=== PATIENT | female | born 1945 | race Hispanic/Latino ===

== ENCOUNTER 2017-03-06 22:12 | Emergency (ER) | payer MEDICARE, BC ==
[2017-03-06 22:12] VITALS: BMI 27.8
[2017-03-06 22:44] VITALS: TEMP 97.8
--- NOTE | 2017-03-06 23:04 | ED PDOC ---
Arrival/HPI - General Chief Complaint: Upper Extremity Problem/Injury Time Seen by Provider: 03/06/17 23:02 Historian: Patient - History of Present Illness Narrative History of Present Illness (Text): 03/06/17 23:03 This 71 yo female presents to this ED c/o left forearm swelling x 6 hours. Patient stated she noticed a redness on the same area x 2 hours. Patient stated she saw her orthopedist doctor around 4 pm, and he injected on each forearm cortisone to treat carpal tunnel, over the palmar aspect. Denies other complains. Wrist, hands and fingers have FROM. Time/Duration: Other (see HPI) Context: Other (doctor office) Past Medical History - Provider Review Nursing Documentation Reviewed: Yes - Infectious Disease Hx of Infectious Diseases: None - Cardiac Hx Hypertension: Yes Hx Pacemaker: No - Pulmonary Hx Respiratory Disorders: No - Neurological Hx Paralysis: No Hx Parkinson's Disease: Yes - HEENT Hx HEENT Disorder: No - Renal Hx Renal Disorder: No - Endocrine/Metabolic Hx Endocrine Disorders: No - Hematological/Oncological Hx Blood Transfusions: Yes - Integumentary Hx Dermatological Disorder: No - Musculoskeletal/Rheumatological Hx Musculoskeletal Disorders: Yes Hx Arthritis: Yes Hx Osteoarthritis: Yes - Gastrointestinal Hx Gastrointestinal Disorders: No Hx Gall Bladder Disease: Yes (stones) - Genitourinary/Gynecological Hx Genitourinary Disorders: No - Psychiatric Hx Emotional Abuse: No Hx Physical Abuse: No Hx Substance Use: No - Surgical History Hx Hysterectomy: Yes - Anesthesia Hx Anesthesia: Yes Hx Anesthesia Reactions: Yes (NAUSEA) Hx Malignant Hyperthermia: No - Suicidal Assessment Feels Threatened In Home Enviroment: No Family/Social History - Physician Review Nursing Documentation Reviewed: Yes Family/Social History: No Known Family HX Smoking Status: Never Smoked Hx Alcohol Use: No Hx Substance Use: No Allergies/Home Meds Allergies/Adverse Reactions: Allergies nitrofurantoin macrocrystalline [From Macrodantin] Allergy (Severe, Verified 07/15 22:44) RASH house dust Allergy (Verified 03/06/17 22:44) CONGESTION AEROSOL SPRAYS Allergy (Uncoded 03/06/17 22:44) CONGESTION Home Medications: Home Meds Medication Instructions Recorded Confirmed Aspirin [Aspir 81] 81 mg PO DAILY 08/09/13 01/25/16 Carbidopa/Levodopa 25/100 mg 1.5 tab PO QID 08/09/13 01/25/16 [Sinemet] Esomeprazole Magnesium [Nexium] 40 mg PO DAILY PRN 05/23/14 01/25/16 Olopatadine HCl [Patanase] 1 spr RANDY DAILY 05/23/14 01/25/16 Alprazolam 0.5 mg PO DAILY 01/21/16 01/25/16 Bifidobacterium Infantis [Align] 4 mg PO DAILY 01/21/16 01/25/16 Cholecalciferol (Vitamin D3) 2,000 unit PO DAILY 01/21/16 01/25/16 [Vitamin D] Ciclopirox [Penlac Nail Lacquer 6.6 ml TP DAILY 01/21/16 01/25/16 6.6 ml] PARoxetine [Paxil] 20 mg PO DAILY 01/21/16 01/25/16 Propranolol [Inderal LA] 80 mg PO BID 01/21/16 01/25/16 Pyridoxine [Vitamin B6] 100 mg PO DAILY 01/21/16 01/25/16 QUEtiapine [SEROquel] 50 mg PO HS 01/21/16 01/25/16 Rotigotine [Neupro] 1 mg TD DAILY 01/21/16 01/25/16 Simvastatin 10 mg PO DAILY 01/21/16 01/25/16 Ubidecarenone [Coq-10] 200 mg PO TID 01/21/16 01/25/16 Ursodiol 300 mg PO BID 01/21/16 01/25/16 Review of Systems - Review of Systems Constitutional: Normal. absent: Fatigue, Weight Change, Fevers Eyes: Normal ENT: Normal Respiratory: Normal Cardiovascular: Normal Gastrointestinal: Normal Genitourinary Female: Normal Musculoskeletal: Normal Skin: Other (swelling and redness) Neurological: Normal Endocrine: Normal Hemo/Lymphatic: Normal Psychiatric: Normal Physical Exam Vital Signs Temp Pulse Resp BP Pulse Ox 03/07/17 00:11 16 98 03/06/17 23:59 90 16 146/100 H 96 03/06/17 22:31 97.8 F 95 H 20 176/118 H 99 Temperature: Afebrile Blood Pressure: Normal Pulse: Regular Respiratory Rate: Normal Appearance: Positive for: Well-Appearing, Non-Toxic, Comfortable Pain Distress: None Mental Status: Positive for: Alert and Oriented X 3 - Systems Exam Head: Present: Atraumatic, Normocephalic Pupils: Present: PERRL Extroacular Muscles: Present: EOMI Conjunctiva: Present: Normal Mouth: Present: Moist Mucous Membranes Neck: Present: Normal Range of Motion Respiratory/Chest: Present: Clear to Auscultation, Good Air Exchange. No: Accessory Muscle Use Cardiovascular: Present: Regular Rate and Rhythm, Normal S1, S2. No: Murmurs Upper Extremity: Present: Normal ROM, NORMAL PULSES, Tenderness ((+) mild tenderness at distal dorsal left forearm with an irregular linear rash, blanches on palpation. No warmth on palpation. Palmar aspect of left forearm is non tender, no swelling or erythema.). No: Cyanosis, Edema Lower Extremity: Present: Normal Inspection Neurological: Present: GCS=15, CN II-XII Intact, Speech Normal Skin: Present: Warm, Dry, Normal Color. No: Rashes Psychiatric: Present: Alert, Oriented x 3 Medical Decision Making ED Course and Treatment: 03/06/17 23:33 Re-evaluation. Patient feels better. Discussed results and plan with patient who expresses understanding. All questions answered and there is agreement with the plan to discharge home with instructions. Patient stable for discharge. Return if symptoms persist or worsen Patient came to this ED with spouse. Patient was c/o left forearm swelling and redness. Patient stated redness has improved during course of ED visit. I ordered Augmentin for prophylaxis of rash/cellulitis. Patient was recommended to see PMD in 1-2 days, to take medication as instructed, and to return to emergency if redness worsen. Re-evaluation Time: 23:33 Reassessment Condition: Re-examined, Improved - Medication Orders Current Medication Orders: Discontinued Medications Amoxicillin/Clavulanate Potassium (Augmentin 875 Mg-125 Mg Tab) 1 tab PO STAT STA PRN Reason: Protocol Stop: 03/06/17 23:11 Last Admin: 03/06/17 23:23 Dose: 1 tab Tramadol/Acetaminophen (Ultracet 37.5/325 Mg) 1 tab PO STAT STA Stop: 03/06/17 23:12 Last Admin: 03/06/17 23:22 Dose: Not Given Non-Admin Reason: Patient Refused Disposition/Present on Arrival - Present on Arrival Any Indicators Present on Arrival: No History of DVT/PE: No History of Uncontrolled Diabetes: No Urinary Catheter: No History of Decub. Ulcer: No History Surgical Site Infection Following: None - Disposition Have Diagnosis and Disposition been Completed?: Yes Diagnosis: Cellulitis Disposition: HOME/ ROUTINE Disposition Time: 23:51 Patient Plan: Discharge Condition: GOOD Discharge Instructions (ExitCare): Cellulitis (ED) Additional Instructions: Call private doctor for follow up visit in 1- 2 days. Take medication as instructed. Return to emergency if redness on forearm worsen. Or if you develop fever. Have your blood pressure recheck in 2-3 days Prescriptions: Amoxicillin/Clavulanate [Augmentin 875 MG-125 MG] 1 tab PO BID #14 tab traMADol [Ultram] 50 mg PO Q6H PRN #12 tab PRN Reason: Pain, Severe (8-10) Referrals: Esteban Castaneda DO [Family Provider] - Follow up with primary Forms: [employer] (Slovak)
[2017-03-06] MEDS ORDERED: Amoxicillin-Clav 875-125 mg Tab PO STA (23:10)
[2017-03-06] MEDS ORDERED: TraMADol/Apap 37.5/325 mg Tab PO STA (23:11)
[2017-03-07] VITALS: BP 146/100; PULSE 90; RESP 16
[2017-03-07 00:12] VITALS: O2SAT 98
== END 2017-03-07 00:12 | disposition home or self-care (01) ==
LOC: ED 22:12
DX: L03.114 Cellulitis of left upper limb (principal)

== ENCOUNTER 2018-04-23 09:45 | Inpatient (IN) | payer MEDICARE, BC ==
--- NOTE | 2018-04-23 09:55 | ED PDOC ---
Arrival/HPI - General Chief Complaint: Lower Extremity Problem/Injury Time Seen by Provider: 04/23/18 09:54 Historian: Patient, Spouse - History of Present Illness Narrative History of Present Illness (Text): 04/23/18 10:30 73 year old female, whose PMH includes hypertension, and parkinson's disease, who presents to the emergency department complaining of severe bilateral leg cramps/pain that has become worse since 3 weeks. Patient reports pain gets worse whenever she moves, changes position, or walks. She suffers from Parkinson 's disease and usually uses a walker for assistance in ambulating. Patient has been evaluated/treated by multiple physicians (PMD, neurologist, director child , and orthopedic), who initially recommended to change cholesterol medication due to concern of side effect, however the symptoms have continued. Patient notes she's had right knee injections without improvement to cramps and was directed by Dr. Castaneda to come to the emergency department for evaluation 3 days ago. Today the pain was very severe that she decided to come for evaluation. Patient denies fall or trauma, fever, chest pain, shortness of breath, nausea, vomiting, diarrhea, abdominal pain, or other complaints. Pt denied swelling/edema, numbness/tingling, no gross/new weakness noted to her limbs; Additionally, patient tried over the counter medication Celebrex, with no significant change in her symptoms. pt is here for further eval pt is without other medical complaints PMD: Dr. Castaneda neurologists: here and in [facility] Time/Duration: > week Symptom Onset: Gradual Symptom Course: Worsening Quality: Cramping Severity Level: Severe Activities at Onset: Rest Context: Home Past Medical History - Provider Review Nursing Documentation Reviewed: Yes - Travel History Have you recently traveled outside [place] w/in the past 3 mons?: No - Past History Past History: Non-Contributing - Infectious Disease Hx of Infectious Diseases: None - Reproductive Menopause: Yes Currently : No - Cardiac Hx Hypertension: Yes Hx Pacemaker: No - Pulmonary Hx Respiratory Disorders: No - Neurological Hx Paralysis: No Hx Parkinson's Disease: Yes - HEENT Hx HEENT Disorder: No - Renal Hx Renal Disorder: No - Endocrine/Metabolic Hx Endocrine Disorders: No - Hematological/Oncological Hx Blood Transfusions: Yes - Integumentary Hx Dermatological Disorder: No - Musculoskeletal/Rheumatological Hx Musculoskeletal Disorders: Yes Hx Arthritis: Yes Hx Osteoarthritis: Yes - Gastrointestinal Hx Gastrointestinal Disorders: No Hx Gall Bladder Disease: Yes (stones) - Genitourinary/Gynecological Hx Genitourinary Disorders: No - Psychiatric Hx Emotional Abuse: No Hx Physical Abuse: No Hx Substance Use: No - Surgical History Hx Hysterectomy: Yes - Anesthesia Hx Anesthesia: Yes Hx Anesthesia Reactions: Yes (NAUSEA) Hx Malignant Hyperthermia: No - Suicidal Assessment Feels Threatened In Home Enviroment: No Family/Social History - Physician Review Nursing Documentation Reviewed: Yes Family/Social History: Unknown Family HX Smoking Status: Never Smoked Hx Alcohol Use: No Hx Substance Use: No Hx Substance Use Treatment: No Allergies/Home Meds Allergies/Adverse Reactions: Allergies nitrofurantoin macrocrystalline [From Macrodantin] Allergy (Severe, Verified 07/15 22:44) RASH house dust Allergy (Verified 03/06/17 22:44) CONGESTION AEROSOL SPRAYS Allergy (Uncoded 03/06/17 22:44) CONGESTION Home Medications: Home Meds Medication Instructions Recorded Confirmed Aspirin [Aspir 81] 81 mg PO DAILY 08/09/13 04/23/18 Carbidopa/Levodopa 25/100 mg 1.5 tab PO QID 08/09/13 04/23/18 [Sinemet] Esomeprazole Magnesium [Nexium] 40 mg PO DAILY PRN 05/23/14 04/23/18 Olopatadine HCl [Patanase] 1 spr RANDY DAILY 05/23/14 04/23/18 Alprazolam 0.5 mg PO DAILY 01/21/16 04/23/18 Bifidobacterium Infantis [Align] 4 mg PO DAILY 01/21/16 04/23/18 Cholecalciferol (Vitamin D3) 2,000 unit PO DAILY 01/21/16 04/23/18 [Vitamin D] Ciclopirox [Penlac Nail Lacquer 6.6 ml TP DAILY 01/21/16 04/23/18 6.6 ml] PARoxetine [Paxil] 20 mg PO DAILY 01/21/16 04/23/18 Propranolol [Inderal LA] 80 mg PO BID 01/21/16 04/23/18 Pyridoxine [Vitamin B6] 100 mg PO DAILY 01/21/16 04/23/18 QUEtiapine [SEROquel] 50 mg PO HS 01/21/16 04/23/18 Rotigotine [Neupro] 1 mg TD DAILY 01/21/16 04/23/18 Simvastatin 10 mg PO DAILY 01/21/16 04/23/18 Ubidecarenone [Coq-10] 200 mg PO TID 01/21/16 04/23/18 Ursodiol 300 mg PO BID 01/21/16 04/23/18 Review of Systems - Review of Systems Constitutional: absent: Fevers Eyes: Normal ENT: absent: Sore Throat Respiratory: absent: SOB Cardiovascular: absent: Chest Pain, Palpitations Gastrointestinal: absent: Abdominal Pain, Vomiting Genitourinary Female: absent: Dysuria Musculoskeletal: Other (bilateral leg cramping ). absent: Back Pain Skin: absent: Rash Neurological: absent: Headache Endocrine: absent: Diaphoresis Hemo/Lymphatic: Normal Psychiatric: Normal Physical Exam - Physical Exam Narrative Physical Exam (Text): 04/23/18 General: alert/awake, GCS = 15, oriented x 3, resting in bed, uncomfortable, cooperative, interactive; NAD Head: NC/AT EYE: PERRLA, EOMI, sclera anicteric, no nystagmus, no photophobia; visual field intact b/l Facial: WNL Oral: uvula/tongue are midline, no exudate/lesions, no drooling/stridor, no dysphonia; intact dentitions; moist oral mucosa NECK: intact ROM, no midline tenderness, no nuchal rigidity, no meningeal signs ; no step off Chest: CTA b/l, no w/r/r; no tachypenia, no accessory muscle use noted Chest Wall: no crepitus, no lesions, no gross deformities, no focal tenderness Cardiac: +S1, +S2, no m/r/r, no tachycardia Abdominal: +BS, soft/nd/nt, well nourished patient; no masses/rebound/guarding/ rigidity; no escobedo's sign, no mcburney's point tenderness Extremities: intact ROM, strength 5-/5 grossly intact in all limbs, neurovasc intact b/l; reflex +2/2; + resting tremors noted BACK: no step off, no midline tenderness, NO crepitus, no gross deformities noted; Intact ROM SKIN: cap refill < 1 sec, no ulcerations, no petechiae, no rashes; no gross pallor noted NEURO: CNII-XII WNL, no facial asymmetries, no slurr speech, oriented x 3 NIH stroke scale ~ 0 Psych: normal insight, normal affect; follows command with ease Vital Signs Reviewed: Yes Vital Signs Temp Pulse Resp BP Pulse Ox 04/23/18 15:43 78 18 166/82 H 95 04/23/18 09:46 98.2 F 85 18 156/74 H 97 Temperature: Afebrile Blood Pressure: Hypertensive Pulse: Regular Respiratory Rate: Normal Appearance: Positive for: Well-Appearing, Non-Toxic, Uncomfortable. No: Ill- Appearing, Unkept Pain Distress: None Mental Status: Positive for: Alert and Oriented X 3 - Systems Exam Head: Present: Atraumatic, Normocephalic Medical Decision Making ED Course and Treatment: 04/23/18 Impression: 73 year old female with worsening bilateral leg cramps since 3 weeks. I have considered all Differential Diagnosis regarding pt's chief medical complaints/clinical findings included but are not limited to: atypical leg cramps, unlikely DVT/will r/o; r/o rhabdo Plan: -- EKG -- Labs -- Toradol, Valium, and Sodium Chloride -- Urinalysis -- Ultrasound Lower extremity -- Reassess and disposition Progress Notes: 04/23/18 14:03 After re-evaluation, patient is still with severe leg cramps and uncomfortable, but is NOT able to ambulate. After extensive discussion with spouse and patient , they express concern going home. I will recommend patient for admission. 04/23/18 14:[address] Castaneda I spoke with dr Castaneda, made aware, agrees with admission, would like patient to be notified that she will be admitted for at least 3 nights pt is made aware of her medical results agrees with admission Re-evaluation Time: 14:00 Reassessment Condition: Unchanged - Lab Interpretations Lab Results: 04/23/18 11:15 04/23/18 11:15 Lab Results 04/23/18 13:23: Urine Color Yellow, Urine Appearance Clear, Urine pH 6.0, Ur Specific [place] 1.020, Urine Protein Negative, Urine Glucose (UA) Negative, Urine Ketones Negative, Urine Blood Trace-intact H, Urine Nitrate Negative, Urine Bilirubin Negative, Urine Urobilinogen 0.2, Ur Leukocyte Esterase Negative , Urine RBC 1 - 3, Urine WBC 0 - 2, Ur Epithelial Cells 3 - 4, Urine Bacteria Few 04/23/18 11:28: Total Creatine Kinase 64 04/23/18 11:15: Sodium 143, Potassium 4.7, Chloride 107, Carbon Dioxide 25, Anion Gap 16, BUN 27 H, Creatinine 0.6 L, Est GFR ( Amer) > 60, Est GFR ( Non-Af Amer) > 60, Random Glucose 110, Calcium 9.3, Total Bilirubin 0.8, AST 26 , ALT 16, Alkaline Phosphatase 78, Total Protein 6.8, Albumin 4.2, Globulin 2.6 , Albumin/Globulin Ratio 1.6, Lipase 56 04/23/18 11:15: WBC 7.1 D, RBC 4.12, Hgb 12.2, Hct 36.4, MCV 88.3, MCH 29.6, MCHC 33.5, RDW 13.3, Plt Count 205, MPV 10.4, Gran % 70.2 H, Lymph % (Auto) 22.4 , Titus % (Auto) 5.3, Eos % (Auto) 1.8, Baso % (Auto) 0.3, Gran # 4.99, Lymph # ( Auto) 1.6, Titus # (Auto) 0.4, Eos # (Auto) 0.1, Baso # (Auto) 0.02 I have reviewed the lab results: Yes Interpretation: All labs normal - RAD Interpretation Narrative RAD Interpretations (Text): 04/23/18 14:00 prelim results u/s b/l - NO DVT b/l Radiology Orders: 04/23/18 10:27 DUPLEX LOWER EXTRM VEIN BILAT [US] Stat Bean Roaster: Radiologist - EKG Interpretation EKG Interpretation (Text): 04/23/18 14:25 NSR at 70 bpm, normal axis, no ectopy, qs in inferior leads, no st-t changes, ABNL EKG; unchanged compare with old ekg 04/2014 Interpreted by ED Physician: Yes Type: 12 lead EKG Comparison: Similar to previous EKG - Medication Orders Current Medication Orders: Discontinued Medications Carbidopa/Levodopa (Sinemet) 1.5 tab PO ONCE ONE Stop: 04/23/18 15:02 Last Admin: 04/23/18 15:40 Dose: Diazepam (Valium) 5 mg PO ONCE ONE PRN Reason: Protocol Stop: 04/23/18 10:24 Last Admin: 04/23/18 11:06 Dose: 5 mg Sodium Chloride (Sodium Chloride 0.9%) 500 mls @ 999 mls/hr IV .Q31M STA Stop: 04/23/18 10:53 Last Admin: 04/23/18 11:05 Dose: 999 mls/hr eMAR Start Stop Document 04/23/18 11:05 EQ (Rec: 04/23/18 11:06 [id number]) Intravenous Solution Start Date 04/23/18 Start Time 11:05 Ketorolac Tromethamine (Toradol) 30 mg IVP STAT STA Stop: 04/23/18 10:25 Last Admin: 04/23/18 11:06 Dose: 30 mg MAR Pain Assessment Document 04/23/18 11:06 EQ (Rec: 04/23/18 11:06 [id number]) Pain Reassessment Is this a pain reassessment? No Sleep Is patient sleeping during reassessment? No Presence of Pain Presence of Pain Yes IVP Administration Document 04/23/18 11:06 EQ (Rec: 04/23/18 11:06 [id number]) Charges for Administration # of IVP Administrations 1 Oxycodone/Acetaminophen (Percocet 5/325 Mg Tab) 1 tab PO STAT STA Stop: 04/23/18 14:04 Last Admin: 04/23/18 15:39 Dose: 1 tab MAR Pain Assessment Document 04/23/18 15:39 EQ (Rec: 04/23/18 15:40 [id number]) Pain Reassessment Is this a pain reassessment? No Sleep Is patient sleeping during reassessment? No Presence of Pain Presence of Pain Yes - Scribe Statement The provider has reviewed the documentation as recorded by the Aroldo Estrada Provider Scribe Attestation: All medical record entries made by the Scribbhavna were at my direction and personally dictated by me. I have reviewed the chart and agree that the record accurately reflects my personal performance of the history, physical exam, medical decision making, and the department course for this patient. I have also personally directed, reviewed, and agree with the discharge instructions and disposition. Disposition/Present on Arrival - Present on Arrival Any Indicators Present on Arrival: No History of DVT/PE: No History of Uncontrolled Diabetes: No Urinary Catheter: No History of Decub. Ulcer: No History Surgical Site Infection Following: None - Disposition Have Diagnosis and Disposition been Completed?: Yes Diagnosis: Ambulatory dysfunction, Parkinsonian syndrome, Weakness, Leg pain Diagnosis: (Ruled Out): UTI (urinary tract infection) Disposition: HOSPITALIZED Disposition Time: 14:27 Patient Plan: Admission Patient Problems: Current Active Problems Problem Status Onset Ambulatory dysfunction Acute Leg pain Acute Parkinsonian syndrome Acute Weakness Acute Condition: STABLE
[2018-04-23] MEDS ORDERED: Sodium Chloride 0.9% 500 ML IV STA (10:23)
[2018-04-23 11:36] LABS: BASO # 0.02 K/mm3 (0.0-2.0); BASO % 0.3 % (0.0-3.0); EOS # 0.1 (0.0-0.7); EOS % 1.8 % (1.5-5.0); GRAN # 4.99 (1.4-6.5); GRAN % 70.2 % (50.0-68.0); HEMOGLOBIN 12.2 g/dL (12.0-16.0); LYMPH # 1.6 (1.2-3.4); LYMPH % 22.4 % (22.0-35.0); MEAN CELL VOLUME 88.3 fl (80.0-105.0); MEAN CORPUSCULAR HEMOGLOBIN 29.6 pg (25.0-35.0); MEAN CORPUSCULAR HGB CONC 33.5 g/dl (31.0-37.0); MEAN PLATELET VOLUME 10.4 fl (7.0-11.0); MONO # 0.4 (0.1-0.6); MONO % 5.3 % (1.0-6.0); RBC 4.12 10^6/uL (3.5-6.1); RED CELL DISTRIBUTION WIDTH 13.3 % (11.5-14.5); WHITE BLOOD COUNT 7.1 10^3/ul (4.5-11.0)
[2018-04-23 11:45] LABS: ALB/GLOB RATIO 1.6 (1.1-1.8); ALBUMIN 4.2 g/dL (3.0-4.8); ALT/SGPT 16 U/L (7-56); AST/SGOT 26 U/L (14-36); BLOOD UREA NITROGEN 27 mg/dL (7-21); CALCIUM 9.3 mg/dL (8.4-10.5); GFR AFRICAN-AMERICAN > 60; GFR NON-AFRICAN AMERICAN > 60; LIPASE 56 U/L (23-300)
[2018-04-23] MEDS ORDERED: Oxycodone/Acetaminophen 5/325 mg Tab PO STA (14:03)
--- NOTE | 2018-04-23 14:53 | US ---
HISTORY: Leg pain and swelling. Evaluate for DVT PHYSICIAN(S): Parminder Romero MD. TECHNIQUE: Duplex sonography and color-flow Doppler with graded compression were used to evaluate the deep venous systems of both lower extremities. FINDINGS: The visualized deep venous systems of both lower extremities are sonographically normal and compressible. Normal wave forms and augmentation are seen. There is no sonographic evidence for deep venous thrombosis in the visualized segments of both lower extremities. IMPRESSION: No sonographic evidence for deep venous thrombosis in the visualized segments of both lower extremities.
[2018-04-23 14:56] LABS: URINE BILIRUBIN NEGATIVE (NEGATIVE); URINE BLOOD TRACE-INTACT (NEGATIVE); URINE GLUCOSE (UA) NEGATIVE (NEGATIVE); URINE LEUKOCYTE ESTERASE NEGATIVE Leu/uL (NEGATIVE); URINE PROTEIN NEGATIVE mg/dL (<30 mg/dL); URINE UROBILINOGEN 0.2 E.U./dL (<1 E.U./dL)
[2018-04-23 14:58] LABS: URINE APPEARANCE CLEAR (CLEAR); URINE COLOR YELLOW (YELLOW)
[2018-04-23 15:04] LABS: URINE BACTERIA FEW (NEG); URINE WBC 0 - 2 /hpf (0-6)
[2018-04-23] MEDS ORDERED: Pantoprazole 40 mg EC Tab PO PRN (19:56)
[2018-04-23] MEDS: Sodium Chloride 0.45% 1,000 ML IV SCH (20:40)
[2018-04-23 22:14] VITALS: BMI 28.3
[2018-04-23] MEDS ORDERED: Pneumococcal 23-Valent Vaccine IM ONE (22:15)
--- NOTE | 2018-04-23 22:50 | CARD ---
APPROVED REPORT EKG Measurement Heart [id number] <Conclusion> Normal sinus rhythm Inferior infarct, age undetermined Cannot rule out Anterior infarct, age undetermined Abnormal ECG
[2018-04-24 07:46] LABS: HEMOGLOBIN 13.2 g/dL (12.0-16.0); MEAN CELL VOLUME 88.4 fl (80.0-105.0); MEAN CORPUSCULAR HEMOGLOBIN 29.5 pg (25.0-35.0); MEAN CORPUSCULAR HGB CONC 33.4 g/dl (31.0-37.0); MEAN PLATELET VOLUME 10.2 fl (7.0-11.0); RBC 4.47 10^6/uL (3.5-6.1); RED CELL DISTRIBUTION WIDTH 13.2 % (11.5-14.5); WHITE BLOOD COUNT 8.2 10^3/ul (4.5-11.0)
[2018-04-24 08:06] LABS: ALB/GLOB RATIO 1.4 (1.1-1.8); ALBUMIN 4.1 g/dL (3.0-4.8); ALT/SGPT 17 U/L (7-56); AST/SGOT 29 U/L (14-36); BLOOD UREA NITROGEN 20 mg/dL (7-21); CALCIUM 9.4 mg/dL (8.4-10.5); GFR AFRICAN-AMERICAN > 60; GFR NON-AFRICAN AMERICAN > 60
--- NOTE | 2018-04-24 08:07 | HP ---
HISTORY OF PRESENT ILLNESS: I know Josee very well for many years, seen here in the office. She presents to the Emergency Department with severe bilateral leg cramps, she has been dealing with this for about three weeks, I gave her some magnesium in the office and she does have Parkinson's disease, we tried to do some exercise on the outpatient. She does walk with a walker, but it has gotten steadily worse, so I sent her to the emergency room. She has had her knees injected in the past and now she does worsening of ambulation. I believe she needs to have subacute rehab so we are going to put her in the hospital for an acute hospital stay to get her acute rehab, because she is very difficult for her to walk or move her legs at all. PAST MEDICAL HISTORY: Hypertension, Parkinson's disease, leg cramps, she had blood transfusions in the past, she has arthritis, she has osteoarthritis, she has gallstones, hysterectomy, she was nauseous in the past from anesthesia. FAMILY HISTORY: She has unknown family history. SOCIAL HISTORY: She never smoked. No alcohol. No drugs. ALLERGIES: SHE HAS ALLERGY TO NITROFURANTOIN, HOUSE DUST AND AEROSOL SPRAYS. MEDICATIONS: She takes aspirin, Sinemet, Nexium, Patanase, Xanax for anxiety vitamin D3, Penlac, Paxil, Inderal, vitamin D6, Seroquel, Neupro, simvastatin, CoQ10 and Ursodiol. REVIEW OF SYSTEMS: No acute fevers or vision or hearing changes, no sore throat, no shortness of breath or cough, no chest pain or palpitations. No abdominal pain, nausea, vomiting, constipation or diarrhea. No problems urinating. She has bilateral leg cramping. No back pain. For the most part her skin is intact, that she knows of no rashes or ulcers. No headaches. No sweating. She is a little nervous, that is her baseline. PHYSICAL EXAMINATION VITAL SIGNS She has 98.2 temperature, 85 pulse, 18 respiratory rate, 166/74 blood pressure, and 97%O2 sat on room air. HEENT: Head: Atraumatic, normocephalic. GCS is 15. Cranial nerves II through XII grossly intact. Extraocular muscles are intact. Pupils are equal and reactive to light. She is slow to talk sometimes that is because of her Parkinson's disease. CHEST/HEART: Regular rate. Normal S1, S2. LUNGS: Decreased breath sounds, but clear to auscultation. ABDOMEN: Soft, nontender. Positive bowel sounds. No guarding, no rebound. No CVA tenderness. EXTREMITIES: She has very difficulty in range of motion on walking. SKIN: tell no rashes or ulcers. NEUROLOGICAL: Alert and oriented x3. She is here for a weakness and steady decline in her physical ability and the need of subacute rehab. She is here with her . LABORATORY DATA: She has 7.1 white count, 12.2 hemoglobin, 36.4 hematocrit with 205 platelets. She has 143 sodium, potassium is 4.7, BUN 27, creatinine 0.6. GFR is greater than 60. Sugar 110, calcium is 9.3, total bili is 0.8, AST is 26, ALT is 16, alkaline phosphatase is 78, total creatine kinase 64, total protein is , albumin 4.2, globulin is 2.6, lipase is 66. Urine is clean. Ultrasound of the legs are negative for clots . IMPRESSION: She is here for weakness, steady decline of debility and history of Parkinson's. Could be worsening Parkinson's, I will consult Neuro and Cardio, put her on medications, go to physical therapy. Esteban Castaneda DO MTDD
--- NOTE | 2018-04-24 08:48 | PN ---
DATE: 04/24/2018 SUBJECTIVE: She was put in the hospital because she could not walk anymore and she needs physical therapy at subacute rehab and has drastic changes as Parkinson's disease and she steadily is getting worse over the past 3 weeks and she has not been doing well. The is having very difficult taking care of her at home and they want to go to [facility] to get her physical therapy. I called in Neuro, I called in Orthopedics. I put her on tramadol for the pain. She is on Actigall, Ecotrin, Inderal, Lipitor, Paxil, Protonix, Sinemet, IV fluids, vitamin B6, vitamin D and Xanax. PHYSICAL EXAMINATION: VITAL SIGNS: She has a 98.1 temp, 80 pulse, 107/60 blood pressure, 18 respiratory rate, 94% O2 sat on room air. HEENT: Head is atraumatic, normocephalic. She is very stiff. HEART: Regular rate. LUNGS: Decreased breath sounds, but clear. ABDOMEN: Soft, obese, nontender. EXTREMITIES: Very stiff. No edema. LABORATORY DATA: She has an 8.2 white count, 13.2 hemoglobin, 39.5 hematocrit with 213 platelets. This morning's labs on the SMA-20 are not back yet. Urine was negative. ASSESSMENT AND PLAN: She is here because she is having debility. She could not walk at home and she needs subacute rehab and she is a high fall risk and the cannot take care of her this way, so we are going to get her into a subacute rehab in 2 more overnights for her safety. I will add tramadol. Await Neurology and Orthopedics evaluation and also Physical Therapy. Esteban Castaneda DO
[2018-04-24] MEDS ORDERED: Non Formulary Medication (Pyridoxine [Vitamin B6] 100 MG) PO SCH (10:00)
[2018-04-24] MEDS ORDERED: Non Formulary Medication (Cholecalciferol (Vitamin D3) [Vitamin D3] 2,000 UNIT) PO SCH (10:00)
[2018-04-24] MEDS ORDERED: Non Formulary Medication (Simvastatin [Simvastatin] 10 MG) PO SCH (10:00)
[2018-04-24] MEDS: Propranolol 80 mg ER Cap PO SCH ×2 (10:03→17:40)
[2018-04-24] MEDS: Cholecalciferol 1,000 INTLU TAB PO SCH (10:04)
--- NOTE | 2018-04-24 17:16 | CP.PCM.PCO ---
Physician Communication Note - Physician Communication Note Physician Communication Note: gait dysfunction sec to PD. JOELLE/PT/c/e sinemet.
--- NOTE | 2018-04-25 00:29 | CON ---
DATE: 04/24/2018 HISTORY OF PRESENT ILLNESS: The patient is a 73-year-old woman who presented to the hospital with bilateral leg pain consistent with muscle cramps. These symptoms are chronic in nature. The patient's past medical history is notable for hypercholesterolemia, severe Parkinson's disease, The patient is followed with multiple cardiac evaluations in a Cardiology office without issues. No previous cardiac history is noted. Negative chest pain, negative shortness of breath. SOCIAL HISTORY: The patient does not smoke. REVIEW OF SYSTEMS: A 14-point review of systems is reviewed in detail. No claudication symptoms are noted. No anginal dyspnea, no dizziness. PHYSICAL EXAMINATION: VITAL SIGNS: Blood pressure 159/92, heart rate is in the 90s, normal sinus rhythm. NECK: Negative JVD. LUNGS: Without rales. HEART: S1 and S2. EXTREMITIES: Without edema. 1+ dorsalis pedis in the lower extremities is noted. LABORATORY DATA: EKG is normal sinus rhythm without acute changes. Hemoglobin is 13.2. Chemistries, BUN and creatinine unremarkable. IMPRESSION: 1. Hypertension. 2. History of Parkinson's. 3. Recurrent cramps in the lower extremities. 4. No claudication symptoms. 5. No evidence for peripheral vascular disease. Given these findings, the patient's cardiac status is stable. There are no acute cardiac issues at this time. We will sign off the case today and refer the patient back to her grant officer for outpatient followup. Parminder Mares MD
--- NOTE | 2018-04-25 01:05 | CON ---
DATE: 04/24/2018 ORTHOPEDIC CONSULT HISTORY OF PRESENT ILLNESS: A 73-year-old female in room 572, bed 2. The patient's complaints are severe weakness and cramping of both lower extremities, significant past history that she has Parkinson disease for several years, has been to many specialists and it is just getting too weak to be cared for at home at this time because of her trouble with balance and poor gait and tremors. Hopefully, we could get help her with some physical therapy. There is no there is no torn tendons, no fractures. Minimal arthritis in the joints, mainly the right greater than the left, where she had seen a backend java developer. She does ambulate with a walker, but that is even getting hard to do lately. So, I am feeling that she is going to benefit from intense physical therapy or subacute rehab facility close to home to help her strengthen her muscles. With increased strength in the muscles, the cramps should get better in her thighs. There is negative venous Doppler for no blood clots. So, I feel going through physical therapy is going to help her quite a bit and get her strong and strengthen endurance to return and will need neurological follow up. FINAL DIAGNOSIS: Muscle weakness from Parkinson disease, mainly of the lower extremities. Bishnu Alvarez DO
[2018-04-25] MEDS: Sodium Chloride 0.45% 1,000 ML IV SCH (02:59)
--- NOTE | 2018-04-25 07:31 | CT ---
EXAM: CT Head Without Intravenous Contrast CLINICAL HISTORY: 73 years old, female; Signs and symptoms; Walking, difficulty; Additional info: Gait probelm TECHNIQUE: Axial computed tomography images of the head/brain without intravenous contrast. All CT scans at this facility use at least one of these dose optimization techniques: automated exposure control; mA and/or kV adjustment per patient size (includes targeted exams where dose is matched to clinical indication); or iterative reconstruction. Coronal and sagittal reformatted images were created and reviewed. COMPARISON: No relevant prior studies available. FINDINGS: Brain: There is mild ill-defined patchy hypodensity within the bilateral cerebral periventricular white matter, consistent with chronic microvascular ischemic changes. There is mild diffuse cerebral atrophy present, consistent with this patient's age. The cortical burris / white matter interfaces are preserved throughout the brain. Examination of the posterior fossa demonstrates no significant abnormality. No hemorrhage. Ventricles: The ventricular system demonstrates mild diffuse compensatory enlargement. Bones/joints: Unremarkable. No acute fracture. Soft tissues: Unremarkable. Vasculature: There is no hyperdense MCA sign. Sinuses: Unremarkable as visualized. No acute sinusitis. Mastoid air cells: Unremarkable as visualized. No mastoid effusion. IMPRESSION: No acute infarction, masses or hemorrhage is seen. No acute intracranial abnormality is identified. Diffuse age-related cerebral atrophy and mild chronic microvascular white matter ischemic changes, without evidence of an acute intracranial abnormality.
--- NOTE | 2018-04-25 08:19 | CON ---
DATE: 04/24/2018 HISTORY OF PRESENT ILLNESS: A 73-year-old white female with past medical history of hypertension, Parkinson disease and came with the complaint of severe cramps in the legs, which is worse at night, going on for 3 weeks. The patient also suffers from Parkinson disease, which she has a neurologist in [place] as well controlling her medication. Came here to the hospital for evaluation. PAST MEDICAL HISTORY: Parkinson's. HOME MEDICATIONS: Aspirin, Sinemet, Nexium, Paxil, Inderal, Seroquel, Simvastatin, etc. REVIEW OF SYSTEMS: Ten-point review of systems was negative. The patient has tremors of both the hands. PHYSICAL EXAMINATION: VITAL SIGNS: Blood pressure 156/74. HEENT: Normocephalic, atraumatic. NECK: Supple. NEUROLOGIC: Alert, awake, orientated to self and place. Cranial nerves II through XII were tested. Pupils reactive. EOM intact. Visual field full. No facial asymmetry. Tongue midline. Motor examination: Spontaneous movement of the extremities noted. Deep tendon reflexes 1+. Both plantars are downgoing. Sensory grossly intact. Cerebellar gait deferred. IMPRESSION: Parkinson disease plus difficulty ambulating and cramps. Workup in progress. Continue present medications. We will follow up. Farhan Minor MD
[2018-04-25] MEDS: Propranolol 80 mg ER Cap PO SCH ×2 (09:32→17:29)
[2018-04-25] MEDS: Cholecalciferol 1,000 INTLU TAB PO SCH (09:33)
--- NOTE | 2018-04-25 16:06 | PN ---
DATE: 04/25/2018 SUBJECTIVE: I saw Josee resting comfortably in bed. She slept well. She is comfortable. She is eating. She is going to hopefully get out of bed to chair today. She is on Actigall, Celebrex, Ecotrin, Inderal, Lipitor, Paxil, Protonix, Sinemet, IV fluids, Ultram, vitamin B6, vitamin D and Xanax. PHYSICAL EXAMINATION: VITAL SIGNS: She has a 98 temperature, 88 pulse, 180/88 blood pressure, 20 respiratory rate, 97% O2 saturation on room air. Her blood pressure is quite high for her, normally she has 120s/70s, we will see if they can recheck it. HEAD: Atraumatic, normocephalic. HEART: Regular rate. LUNGS: Decreased breath sounds, but clear. ABDOMEN: Soft. EXTREMITIES: No edema. LABORATORY DATA: Her blood test, she has an 8.2 white count, 13.2 hemoglobin, 39.5 hematocrit and 213 platelets. She has 145 sodium, potassium 4.6, BUN 20, creatinine 0.6, getting better. GFR is greater than 60. Sugar is 106. Calcium magnesium 1.9, total bili is 1.3, AST is 29, ALT is 17, alkaline phosphatase 77, total creatine kinase is 64, total protein is 7, lipase is 66. Urine was clean. He is being seen by Neurology and Cardiology and Orthopedics and she had a CAT scan of her head. No acute infarction, masses or hemorrhage is seen. No evidence of acute intracranial abnormality, age-related stuff. gait dysfunction, she will get physical therapy, she is going to go to [facility] or [facility] tomorrow. Cardiology signed of the case. So, tomorrow, the plan is for subacute rehab. We will check her labs and the patient is get out of bed to chair, either with foot or with physical therapy. Esteban Castaneda DO MTDD
[2018-04-25] MEDS ORDERED: WELCHOL PO SCH ×2 (17:00→17:32)
[2018-04-26 06:32] LABS: HEMOGLOBIN 12.4 g/dL (12.0-16.0); MEAN CELL VOLUME 91.1 fl (80.0-105.0); MEAN CORPUSCULAR HGB CONC 32.9 g/dl (31.0-37.0); MEAN PLATELET VOLUME 10.8 fl (7.0-11.0); RBC 4.14 10^6/uL (3.5-6.1); RED CELL DISTRIBUTION WIDTH 13.5 % (11.5-14.5); WHITE BLOOD COUNT 6.9 10^3/ul (4.5-11.0)
[2018-04-26 07:29] LABS: ALB/GLOB RATIO 1.5 (1.1-1.8); ALBUMIN 3.8 g/dL (3.0-4.8); ALT/SGPT 7 U/L (7-56); AST/SGOT 27 U/L (14-36); BLOOD UREA NITROGEN 17 mg/dL (7-21); CALCIUM 9.2 mg/dL (8.4-10.5); GFR AFRICAN-AMERICAN > 60; GFR NON-AFRICAN AMERICAN > 60
[2018-04-26] MEDS: Propranolol 80 mg ER Cap PO SCH (10:03)
[2018-04-26] MEDS: Cholecalciferol 1,000 INTLU TAB PO SCH (10:06)
[2018-04-26 15:02] VITALS: BP 160/70; PULSE 80; RESP 20; TEMP 98.3; O2SAT 97
--- NOTE | 2018-04-27 06:33 | DS ---
HISTORY OF PRESENT ILLNESS: She is here because she could not walk and was very weak and that she needs subacute rehab, high fall risk and she is going to be send to [facility] today. She was on IV fluids, Actigall, Celebrex, Ecotrin, Inderal, Paxil, Protonix, Sinemet, tramadol, vitamin B6, vitamin D and Xanax. PHYSICAL EXAMINATION: VITAL SIGNS: She has 98.4 temperature, 67 pulse, 105/52 blood pressure, 18 respiratory rate, 98% O2 sat on room air. HEENT: Head is atraumatic, normocephalic. She knows she is going to subacute rehab for physical therapy before she goes home. HEART: Regular rate. LUNGS: Clear to auscultation. ABDOMEN: Soft. EXTREMITIES: No edema, but is stiff from Parkinson's disease. LABORATORY DATA: She has 143 sodium, potassium 4.1, BUN is 17, creatinine 0.6, GFR greater than 60, sugar is 104, calcium is 9.2, total bili is 1.1, AST is 27, ALT is 7, alk phos 65, total protein 6.3. She has 6.9 white count, 12.4 hemoglobin and 188 platelets. She was seen by Neurology, Cardiology and Orthopedics, and she will be discharged to [facility] today. FINAL DIAGNOSIS: Debility secondary to worsening Parkinson's. Esteban Castaneda DO
== END 2018-04-26 15:45 | disposition home or self-care (01) | DRG 57 ==
LOC: ED 09:45 → ERH 14:21 → 5RSO 16:24
PROVIDERS: ADMIT Family Medicine; ATTEND Family Medicine
DX: G20 Parkinson's disease (principal); R53.81 Other malaise; M79.605 Pain in left leg; M79.604 Pain in right leg; R26.9 Unspecified abnormalities of gait and mobility; R25.2 Cramp and spasm; I10 Essential (primary) hypertension; K80.20 Calculus of gallbladder without cholecystitis without obstruction; M19.90 Unspecified osteoarthritis, unspecified site; E78.00 Pure hypercholesterolemia, unspecified; M62.81 Muscle weakness (generalized)

== ENCOUNTER 2018-10-15 16:57 | Observation (INO) | payer MEDICARE, BC ==
[2018-10-15 17:03] VITALS: BMI 26.4
[2018-10-15 18:51] LABS: BASO # 0.02 K/mm3 (0.0-2.0); BASO % 0.3 % (0.0-3.0); EOS # 0.2 (0.0-0.7); EOS % 2.5 % (1.5-5.0); GRAN # 4.88 (1.4-6.5); GRAN % 61.7 % (50.0-68.0); HEMOGLOBIN 12.7 g/dL (12.0-16.0); LYMPH # 2.3 (1.2-3.4); LYMPH % 29.1 % (22.0-35.0); MEAN CELL VOLUME 92.7 fl (80.0-105.0); MEAN CORPUSCULAR HGB CONC 33.4 g/dl (31.0-37.0); MEAN PLATELET VOLUME 10.6 fl (7.0-11.0); MONO # 0.5 (0.1-0.6); MONO % 6.4 % (1.0-6.0); RBC 4.1 10^6/uL (3.5-6.1); RED CELL DISTRIBUTION WIDTH 12.7 % (11.5-14.5); WHITE BLOOD COUNT 7.9 10^3/uL (4.5-11.0)
[2018-10-15 18:59] LABS: ALB/GLOB RATIO 1.5 (1.1-1.8); ALBUMIN 4.4 g/dL (3.0-4.8); ALT/SGPT 19 U/L (7-56); AST/SGOT 26 U/L (14-36); BLOOD UREA NITROGEN 28 mg/dL (7-21); CALCIUM 9.6 mg/dL (8.4-10.5); GFR NON-AFRICAN AMERICAN > 60
[2018-10-15 19:05] LABS: INR 0.97; PARTIAL THROMBOPLASTIN TIME 27.2 Seconds (25.1-36.5); PROTHROMBIN TIME 11.1 SECONDS (9.4-12.5)
[2018-10-15 19:07] LABS: B-TYPE NATRIURETIC PEPTIDE 192 pg/mL (0-450)
--- NOTE | 2018-10-15 19:55 | ED PDOC ---
Arrival/HPI - General Historian: Patient - History of Present Illness Narrative History of Present Illness (Text): 73 year old female, whose PMH includes hypertension and parkinson's disease, who presents to the emergency department c/o left leg pain and swelling x 1 month. Sent here by her neurologist Dr. Rivera for evaluation of left leg swelling and redness, recommended left leg venous duplex to r/o DVT. Was seen by multiple doctor's for same symptoms prior, including podiatry, recommendations included increased movement and elevation of the extremity. Patient also c/o intermittent, severe left great toe pain without injury. Pt lives at home with and is ambulatory with walker at baseline. Denies open wounds, trauma/injury, fever, chills, chest pain, SOB, cough, numbness, weakness, paresthesias, back pain, or any other associated symptoms. <Katerine Ceja - Last Filed: 10/15/18 22:52> <Jerson Quezada - Last Filed: 10/16/18 07:48> - General Chief Complaint: Lower Extremity Problem/Injury Time Seen by Provider: 10/15/18 17:15 Past Medical History - Provider Review Nursing Documentation Reviewed: Yes - Past History Past History: Non-Contributing - Infectious Disease Hx of Infectious Diseases: None - Reproductive Menopause: Yes - Cardiac Hx Hypertension: Yes - Pulmonary Hx Respiratory Disorders: No - Neurological Hx Neurological Disorder: Yes Hx Parkinson's Disease: Yes (hand tremors) Other/Comment: bilat carpal tunnel - HEENT Hx HEENT Disorder: Yes (eyeglases) - Renal Hx Renal Disorder: No - Endocrine/Metabolic Hx Endocrine Disorders: Yes (thyroid nodule) - Hematological/Oncological Hx Blood Disorders: Yes (blood transfusion) - Integumentary Hx Dermatological Disorder: Yes - Musculoskeletal/Rheumatological Hx Arthritis: Yes - Gastrointestinal Hx Gastrointestinal Disorders: No Hx Gall Bladder Disease: Yes (gallstones) - Genitourinary/Gynecological Hx Genitourinary Disorders: Yes Hx Incontinence: Yes - Psychiatric Hx Anxiety: Yes Hx Depression: Yes Hx Emotional Abuse: No Hx Physical Abuse: No Hx Substance Use: No - Surgical History Hx Hysterectomy: Yes Other/Comment: polypectomy, thyroid bx 01/25/16, laser sx eye - Anesthesia Hx Anesthesia: Yes Hx Anesthesia Reactions: Yes (NAUSEA) Hx Malignant Hyperthermia: No - Suicidal Assessment Feels Threatened In Home Enviroment: No <Katerine Ceja - Last Filed: 10/15/18 22:52> Family/Social History - Physician Review Nursing Documentation Reviewed: Yes Family/Social History: No Known Family HX Smoking Status: Former Smoker Hx Alcohol Use: No Hx Substance Use: No Hx Substance Use Treatment: No <Katerine Ceja - Last Filed: 10/15/18 22:52> Allergies/Home Meds <Katerine Ceja - Last Filed: 10/15/18 22:52> <Jerson Quezada - Last Filed: 10/16/18 07:48> Allergies/Adverse Reactions: Allergies nitrofurantoin macrocrystalline [From Macrodantin] Allergy (Severe, Verified 03/06/17 22:44) RASH house dust Allergy (Verified 03/06/17 22:44) CONGESTION AEROSOL SPRAYS Allergy (Uncoded 03/06/17 22:44) CONGESTION Home Medications: Home Meds Medication Instructions Recorded Confirmed Aspirin [Aspir 81] 81 mg PO DAILY 08/09/13 04/23/18 Carbidopa/Levodopa 25/100 mg 1.5 tab PO QID 08/09/13 04/23/18 [Sinemet] Esomeprazole Magnesium [Nexium] 40 mg PO DAILY PRN 05/23/14 04/23/18 Olopatadine HCl [Patanase] 1 spr RANDY BID 05/23/14 04/23/18 Bifidobacterium Infantis [Align] 4 mg PO DAILY 01/21/16 04/23/18 Cholecalciferol (Vitamin D3) 2,000 unit PO DAILY 01/21/16 04/23/18 [Vitamin D] PARoxetine [Paxil] 20 mg PO DAILY 01/21/16 04/23/18 Propranolol [Inderal LA] 80 mg PO BID 01/21/16 04/23/18 Pyridoxine [Vitamin B6] 100 mg PO DAILY 01/21/16 04/23/18 RX: Alprazolam 0.5 mg PO DAILY PRN 01/21/16 04/23/18 RX: Simvastatin 10 mg PO DAILY 01/21/16 04/23/18 RX: Ursodiol 300 mg PO BID 01/21/16 04/23/18 Rotigotine [Neupro] 1 mg TD DAILY 01/21/16 04/23/18 Ubidecarenone [Coq-10] 200 mg PO TID 01/21/16 04/23/18 Celecoxib [Celebrex] 200 mg PO DAILY 04/23/18 04/23/18 Levofloxacin [Levaquin] 500 mg PO DAILY 04/23/18 04/23/18 Review of Systems - Physician Review All systems were reviewed & negative as marked: Yes - Review of Systems Constitutional: Normal. absent: Fatigue, Weight Change, Fevers, Night Sweats, Other Eyes: Normal. absent: Vision Changes, Photophobia, Eye Pain, Other ENT: Normal. absent: Hearing Changes, Tinnitus, TMJ Pain, Voice Changes, Sore Throat, Rhinorrhea, Epistaxis, Sinus Congestion, Other Respiratory: Normal. absent: SOB, Cough, Sputum, Wheezing, Other Cardiovascular: Normal. absent: Chest Pain, Palpitations, Edema, Calf Pain, GRAY, Orthopnea, SY, Syncope, Other Gastrointestinal: Normal. absent: Abdominal Pain, Stool Changes, Nausea, Vomiting Genitourinary Female: Normal. absent: Dysuria, Frequency Musculoskeletal: Arthralgias (left great toe) Skin: Cellulitis (left lower leg), Other (swelling left lower leg). absent: Rash, Pruritis, Skin Lesions, Laceration, Abscess, Ulcer Neurological: Normal. absent: Headache, Dizziness, Focal Weakness, Gait Changes, Speech Changes, Facial Droop, Disequilibrium Endocrine: Normal Hemo/Lymphatic: Normal. absent: Adenopathy Psychiatric: Normal <Katerine Ceja - Last Filed: 10/15/18 22:52> Physical Exam Vital Signs Reviewed: Yes Vital Signs Temp Pulse Resp BP Pulse Ox 10/15/18 17:02 98.0 F 73 18 194/97 H 98 Temperature: Afebrile Blood Pressure: Hypertensive Pulse: Regular Respiratory Rate: Normal Appearance: Positive for: Well-Appearing, Non-Toxic, Comfortable Pain Distress: None Mental Status: Positive for: Alert and Oriented X 3 - Systems Exam Head: Present: Atraumatic, Normocephalic Pupils: Present: PERRL Extroacular Muscles: Present: EOMI Conjunctiva: Present: Normal Mouth: Present: Moist Mucous Membranes Neck: Present: Normal Range of Motion Respiratory/Chest: Present: Clear to Auscultation, Good Air Exchange. No: Respiratory Distress, Accessory Muscle Use Cardiovascular: Present: Regular Rate and Rhythm, Normal S1, S2. No: Murmurs Abdomen: No: Tenderness, Distention, Peritoneal Signs Back: Present: Normal Inspection. No: CVA Tenderness Upper Extremity: Present: Normal Inspection, Normal ROM, NORMAL PULSES, Neurovascularly Intact, Capillary Refill < 2s. No: Cyanosis, Edema Lower Extremity: Present: Normal Inspection, NORMAL PULSES, Normal ROM, Tenderness (left great toe), Swelling (left lower leg and foot), Temperature Abnormalties (left lower leg warm), Capillary Refill < 2 s. No: Edema, Deformity, Neurovascularly Intact Neurological: Present: GCS=15, Speech Normal, Normal Sensory Function, Other (tremors to face and hands; chronic) Skin: Present: Warm, Dry, Normal Color, Erythematous (left lower leg), Hot (left lower leg). No: Rashes, Abrasion Lymphatic: No: Cervical Adenopathy Psychiatric: Present: Alert, Oriented x 3, Normal Insight, Normal Concentration, Normal Affect, Normal Mood <Katerine Ceja - Last Filed: 10/15/18 22:52> Vital Signs Temp Pulse Resp BP Pulse Ox 10/15/18 19:30 88 16 132/52 L 100 10/15/18 17:02 98.0 F 73 18 194/97 H 98 <Jerson Quezada - Last Filed: 10/16/18 07:48> Medical Decision Making ED Course and Treatment: Initial Plan: * CBC, CMP * Coags * Venous duplex left leg * Left foot XR CBC, CMP, Coags: unremarkable Duplex: prelim read DVT negative Left foot XR: reviewed by me and ED attendings Dr. Mckeon and Dr. Beth; compared to XR from 2017; possible osteomyelitis at left MTP joint. 20:00 Dr. Castaneda accepted patient on to his service for inpatient observation to med- surg floor, to rule out osteomyelitis. Recommends MRI left foot, consult to Dr. Kelly. Will draw blood cultures and give IV Vancomycin secondary to left lower leg cellulitis and possible osteomyelitis. - Lab Interpretations Lab Results: 10/15/18 18:38 10/15/18 18:38 Lab Results 10/15/18 18:38: Sodium 141, Potassium 4.2, Chloride 107, Carbon Dioxide 28, Anion Gap 11, BUN 28 H, Creatinine 0.6 L, Est GFR ( Amer) > 60, Est GFR (Non-Af Amer) > 60, Random Glucose 102, Calcium 9.6, Phosphorus 4.5, Magnesium 2.0, Total Bilirubin 0.9, AST 26, ALT 19, Alkaline Phosphatase 86, NT-Pro-B Natriuret Pep 192, Total Protein 7.2, Albumin 4.4, Globulin 2.8, Albumin/Globulin Ratio 1.5 10/15/18 18:38: PT 11.1, INR 0.97, APTT 27.2 10/15/18 18:38: WBC 7.9, RBC 4.10, Hgb 12.7, Hct 38.0, MCV 92.7, MCH 31.0, MCHC 33.4, RDW 12.7, Plt Count 269, MPV 10.6, Gran % 61.7, Lymph % (Auto) 29.1, [place] % (Auto) 6.4 H, Eos % (Auto) 2.5, Baso % (Auto) 0.3, Gran # 4.88, Lymph # (Auto) 2.3, [place] # (Auto) 0.5, Eos # (Auto) 0.2, Baso # (Auto) 0.02 I have reviewed the lab results: Yes Interpretation: All labs normal - RAD Interpretation Radiology Orders: 10/15/18 17:25 DUPLEX LOWER EXTRM VEIN LEFT [US] Stat 10/15/18 17:59 FOOT LEFT GREAT TOE ROUTINE [RAD] Stat Pick Up Driver: ED Physician <Katerine Ceja - Last Filed: 10/15/18 22:52> - Lab Interpretations Lab Results: 10/15/18 18:38 10/15/18 18:38 Lab Results 10/15/18 20:16: Urine Color Light yellow, Urine Appearance Clear, Urine pH 6.5, Ur Specific [place] <= 1.005, Urine Protein Negative, Urine Glucose (UA) Negative, Urine Ketones Negative, Urine Blood Negative, Urine Nitrate Negative, Urine Bilirubin Negative, Urine Urobilinogen 0.2, Ur Leukocyte Esterase Negative 10/15/18 18:38: Sodium 141, Potassium 4.2, Chloride 107, Carbon Dioxide 28, Anion Gap 11, BUN 28 H, Creatinine 0.6 L, Est GFR ( Amer) > 60, Est GFR (Non-Af Amer) > 60, Random Glucose 102, Calcium 9.6, Phosphorus 4.5, Magnesium 2.0, Total Bilirubin 0.9, AST 26, ALT 19, Alkaline Phosphatase 86, NT-Pro-B Natriuret Pep 192, Total Protein 7.2, Albumin 4.4, Globulin 2.8, Albumin/Globulin Ratio 1.5 10/15/18 18:38: PT 11.1, INR 0.97, APTT 27.2 10/15/18 18:38: WBC 7.9, RBC 4.10, Hgb 12.7, Hct 38.0, MCV 92.7, MCH 31.0, MCHC 33.4, RDW 12.7, Plt Count 269, MPV 10.6, Gran % 61.7, Lymph % (Auto) 29.1, [place] % (Auto) 6.4 H, Eos % (Auto) 2.5, Baso % (Auto) 0.3, Gran # 4.88, Lymph # (Auto) 2.3, [place] # (Auto) 0.5, Eos # (Auto) 0.2, Baso # (Auto) 0.02 - RAD Interpretation Radiology Orders: 10/15/18 17:25 DUPLEX LOWER EXTRM VEIN LEFT [US] Stat 10/15/18 17:59 FOOT LEFT GREAT TOE ROUTINE [RAD] Stat - Medication Orders Current Medication Orders: Discontinued Medications Acetaminophen (Tylenol 325mg Tab) 650 mg PO ONCE ONE Stop: 10/15/18 23:39 Last Admin: 10/15/18 23:48 Dose: 650 mg MAR Pain/Vitals Document 10/15/18 23:48 OLIVD (Rec: 10/15/18 23:49 OLIVD [id number]) Pain Reassessment Is This A Pain ReAssessment? No Presence of Pain Presence of Pain Yes Location Pain Location Body Site Generalized Description Intermittent Intensity 6 Alprazolam (Xanax) 0.5 mg PO ONCE ONE; Protocol Stop: 10/15/18 23:41 Last Admin: 10/15/18 23:49 Dose: 0.5 mg Behavioural Document 10/15/18 23:49 OLIVD (Rec: 10/15/18 23:50 OLIVD [id number]) Maintenance Maintenance Dose Yes Vancomycin HCl (Vancomycin 1gm) 1 gm in 250 mls @ 167 mls/hr IVPB STAT STA; Protocol Stop: 10/15/18 21:53 Last Admin: 10/15/18 21:01 Dose: 167 mls/hr eMAR Start Stop Document 10/15/18 21:01 CNR (Rec: 10/15/18 21:02 CNR [id number]) Intravenous Solution Start Date 10/15/18 Start Time 21:02 <Jerson Quezada - Last Filed: 10/16/18 07:48> - PA / DRIVER TRAINER / Resident Statement / has reviewed & agrees with the documentation as recorded. <Jerson Quezada - Last Filed: 10/16/18 07:48> Disposition/Present on Arrival - Present on Arrival Any Indicators Present on Arrival: No History of DVT/PE: No History of Uncontrolled Diabetes: No Urinary Catheter: Yes (external catheter) History of Decub. Ulcer: No History Surgical Site Infection Following: None - Disposition Have Diagnosis and Disposition been Completed?: Yes Disposition Time: 19:53 <Katerine Ceja - Last Filed: 10/15/18 22:52> <Jerson Quezada - Last Filed: 10/16/18 07:48> - Disposition Diagnosis: Cellulitis Disposition: HOME/ ROUTINE Patient Problems: Current Active Problems Problem Status Onset Cellulitis Acute Condition: STABLE
[2018-10-15] MEDS ORDERED: Vancomycin 1gm in NS 250ml 1 GM/250 ML BAG IVPB STA (20:24)
[2018-10-15 20:32] LABS: PH,URINE 6.5 (4.7-8.0); URINE BILIRUBIN NEGATIVE (NEGATIVE); URINE BLOOD NEGATIVE (NEGATIVE); URINE GLUCOSE (UA) NEGATIVE (NEGATIVE); URINE LEUKOCYTE ESTERASE NEGATIVE Leu/uL (NEGATIVE); URINE PROTEIN NEGATIVE mg/dL (<30 mg/dL); URINE UROBILINOGEN 0.2 E.U./dL (<1 E.U./dL)
[2018-10-15 20:33] LABS: URINE APPEARANCE CLEAR (CLEAR); URINE COLOR LIGHT YELLOW (YELLOW)
[2018-10-16 06:54] VITALS: BP 167/84; PULSE 86; RESP 19; TEMP 97.9; O2SAT 96
[2018-10-16] MEDS ORDERED: Pantoprazole 40 mg EC Tab PO PRN (09:02)
[2018-10-16] MEDS: Non Formulary Medication (Ubidecarenone [Coq-10] 200 MG) PO SCH ×2 (09:41→14:06)
[2018-10-16] MEDS ORDERED: ROTIGOTINE 1 MG TD SCH (10:00)
[2018-10-16] MEDS ORDERED: BIFIDOBACTERIUM INFANTIS 4 MG PO SCH (10:00)
[2018-10-16] MEDS ORDERED: Propranolol 80 mg ER Cap PO SCH (10:00)
[2018-10-16] MEDS ORDERED: Cholecalciferol 1,000 INTLU TAB PO SCH (10:00)
--- NOTE | 2018-10-16 10:03 | RAD ---
Date of service: 10/15/2018 PROCEDURE: Left Foot Radiographs. HISTORY: left toe pain COMPARISON: None. FINDINGS: BONES: Normal. No fracture. JOINTS: Severe degenerative changes are seen in the 1st MTP joint. SOFT TISSUES: Normal. OTHER FINDINGS: None. IMPRESSION: Severe degenerative changes are seen in the 1st MTP joint.
--- NOTE | 2018-10-16 11:42 | PN ---
DATE: 10/16/2018 SUBJECTIVE: She was kept overnight in observation, because of a left first toe inflammation, possible osteomyelitis as per the ER doctor. She is comfortable in bed. PHYSICAL EXAMINATION: VITAL SIGNS: She has a 97.9 temperature, 86 pulse, 167/86 blood pressure, 19 respiratory rate, 96% sat on room air. HEAD: Atraumatic and normocephalic. HEART: Regular rate. LUNGS: Clear to auscultation. ABDOMEN: Soft. EXTREMITIES: Left foot first toe was inflamed. ASSESSMENT AND PLAN: She is here for an MRI, ultrasound and x-ray, have to wait for the results to come back. If they are good, I will discharge her today. If they are not, I will have to keep her for IV antibiotics, get Infectious Disease involved. Waiting for the phone call from the nurse about these lab results and she is here for a left first toe redness possible osteomyelitis and bone worsening and degeneration Esteban Castaneda DO MTDD
--- NOTE | 2018-10-16 12:52 | MRI ---
Date of service: 10/16/2018 PROCEDURE: MRI of the left foot without contrast HISTORY: r/o osteomyelitis left great toe COMPARISON: X-rays 10/15/2018 TECHNIQUE: MRI of the left foot was performed in multiple planes using multiple pulse sequences. FINDINGS: Severe degenerative changes are seen in the 1st MTP joint. There is minimal marrow edema around the joint which is most likely on the basis of degeneration. The finding is not suspicious for osteomyelitis. The remaining toes are unremarkable. The remaining metatarsals are unremarkable. There is no significant soft tissue swelling. IMPRESSION: Severe degenerative changes 1st MTP joint. No evidence of osteomyelitis
--- NOTE | 2018-10-16 13:03 | CP.PCM.CON ---
History of Present Illness - History of Present Illness History of Present Illness: Podiatry Consult Note: Dr. Kelly 73F patient, with PMHx of Parkinson's disease and HTN, seen and evaluated for L leg pain and swelling. She presented to the ED to r/o DVT to L lower extremity. Patient states that she has pain between her first and second digit on the left from them rubbing together. Patient is well known to Dr. Kelly. She denies any other pedal complaints at this time. Denies N/V/F/SOB/CP. PMHx: HTN, Parkinsons All: Nitrofurantoin macrocrystalline Review of Systems - Review of Systems Review of Systems: As per HPI Past Patient History - Infectious Disease Hx of Infectious Diseases: None - Past Social History Smoking Status: Former Smoker - CARDIAC Hx Hypertension: Yes - PULMONARY Hx Respiratory Disorders: No - NEUROLOGICAL Hx Neurological Disorder: Yes Hx Parkinson's Disease: Yes (hand tremors) Other/Comment: bilat carpal tunnel - HEENT Hx HEENT Problems: Yes (eyeglases) - RENAL Hx Chronic Kidney Disease: No - ENDOCRINE/METABOLIC Hx Endocrine Disorders: Yes (thyroid nodule) - HEMATOLOGICAL/ONCOLOGICAL Hx Blood Disorders: Yes (blood transfusion) - INTEGUMENTARY Hx Dermatological Problems: Yes - MUSCULOSKELETAL/RHEUMATOLOGICAL Hx Arthritis: Yes - GASTROINTESTINAL Hx Gastrointestinal Disorders: No Hx Gall Bladder Disease: Yes (gallstones) - GENITOURINARY/GYNECOLOGICAL Hx Genitourinary Disorders: Yes Hx Incontinence: Yes - PSYCHIATRIC Hx Anxiety: Yes Hx Depression: Yes Hx Emotional Abuse: No Hx Physical Abuse: No Hx Substance Use: No - SURGICAL HISTORY Hx Hysterectomy: Yes Other/Comment: polypectomy, thyroid bx 01/25/16, laser sx eye - ANESTHESIA Hx Anesthesia: Yes Hx Anesthesia Reactions: Yes (NAUSEA) Hx Malignant Hyperthermia: No Meds Home Medications: Home Medication List Medication Instructions Recorded Confirmed Type Cephalexin [Keflex] 500 mg PO Q6H 7 Days #28 capsule 10/15/18 Rx Allergies/Adverse Reactions: Allergies Allergy/AdvReac Type Severity Reaction Status Date / Time nitrofurantoin Allergy Severe RASH Verified 03/06/17 22:44 macrocrystalline [From Macrodantin] house dust Allergy CONGESTION Verified 03/06/17 22:44 AEROSOL SPRAYS Allergy CONGESTION Uncoded 03/06/17 22:44 - Medications Medications: Current Medications Alprazolam (Xanax) 0.5 mg PO DAILY PRN; Protocol PRN Reason: Anxiety Last Admin: 10/16/18 09:44 Dose: 0.5 mg Aspirin (Ecotrin) 81 mg PO DAILY [facility] Last Admin: 10/16/18 09:38 Dose: 81 mg Atorvastatin Calcium (Lipitor) 10 mg PO DAILY [facility] Last Admin: 10/16/18 09:39 Dose: 10 mg Carbidopa/Levodopa (Sinemet) 1.5 tab PO QID [facility] Last Admin: 10/16/18 09:40 Dose: 1.5 tab Cholecalciferol (Vitamin D) 2,000 intlu PO DAILY [facility] Last Admin: 10/16/18 09:43 Dose: 2,000 intlu Non-Formulary Medication (Bifidobacterium Infantis [Align]) 4 mg PO DAILY [facility] Last Admin: 10/16/18 09:38 Dose: Not Given Non-Formulary Medication (Celecoxib [Celebrex]) 200 mg PO DAILY [facility] Last Admin: 10/16/18 09:38 Dose: Not Given Non-Formulary Medication (Rotigotine [Neupro]) 1 mg TD DAILY [facility] Last Admin: 10/16/18 09:39 Dose: Not Given Non-Formulary Medication (Ubidecarenone [Coq-10]) 200 mg PO TID [facility] Last Admin: 10/16/18 09:41 Dose: Not Given Pantoprazole Sodium (Protonix Ec Tab) 40 mg PO DAILY PRN PRN Reason: GI distress Paroxetine HCl (Paxil) 20 mg PO DAILY [facility] Last Admin: 10/16/18 09:39 Dose: 20 mg Propranolol HCl (Inderal La) 80 mg PO BID [facility] Last Admin: 10/16/18 09:39 Dose: 80 mg Pyridoxine HCl (Vitamin B6 50 Mg Tab) 100 mg PO DAILY [facility] Last Admin: 10/16/18 09:43 Dose: 100 mg Ursodiol (Actigall) 300 mg PO BID [facility] Last Admin: 10/16/18 09:38 Dose: 300 mg Physical Exam - Constitutional Appears: Well, Non-toxic, No Acute Distress - Extremities Exam Additional comments: Vascular: DP/PT palpable, TG WNL, CFT < 3 seconds, no edema appreciated Ortho: Tenderness to palpation of overlapping hallux on second digit, HT deformities 2-5, HAV deformity b/l, resting tremor appreciated Neuro: Gross sensation intact, protective sensation diminished Derm: No open lesions, no clinical signs of infection - Neurological Exam Neurological exam: Alert, Oriented x3 - Psychiatric Exam Psychiatric exam: Normal Affect, Normal Mood Results - Vital Signs Recent Vital Signs: Last Vital Signs Temp 97.9 F 10/16/18 06:00 Pulse 86 10/16/18 09:39 Resp 19 10/16/18 06:00 BP 167/84 H 10/16/18 09:39 Pulse Ox 96 10/16/18 06:00 - Labs Result Diagrams: 10/15/18 18:38 10/15/18 18:38 Labs: Laboratory Results - last 24 hr 10/15/18 10/15/18 10/15/18 18:38 18:38 18:38 WBC 7.9 RBC 4.10 Hgb 12.7 Hct 38.0 MCV 92.7 MCH 31.0 MCHC 33.4 RDW 12.7 Plt Count 269 MPV 10.6 Gran % 61.7 Lymph % (Auto) 29.1 [place] % (Auto) 6.4 H Eos % (Auto) 2.5 Baso % (Auto) 0.3 Gran # 4.88 Lymph # (Auto) 2.3 [place] # (Auto) 0.5 Eos # (Auto) 0.2 Baso # (Auto) 0.02 PT 11.1 INR 0.97 APTT 27.2 Sodium 141 Potassium 4.2 Chloride 107 Carbon Dioxide 28 Anion Gap 11 BUN 28 H Creatinine 0.6 L Est GFR ( Amer) > 60 Est GFR (Non-Af Amer) > 60 Random Glucose 102 Calcium 9.6 Phosphorus 4.5 Magnesium 2.0 Total Bilirubin 0.9 AST 26 ALT 19 Alkaline Phosphatase 86 NT-Pro-B Natriuret Pep 192 Total Protein 7.2 Albumin 4.4 Globulin 2.8 Albumin/Globulin Ratio 1.5 Urine Color Urine Appearance Urine pH Ur Specific [place] Urine Protein Urine Glucose (UA) Urine Ketones Urine Blood Urine Nitrate Urine Bilirubin Urine Urobilinogen Ur Leukocyte Esterase 10/15/18 20:16 WBC RBC Hgb Hct MCV MCH MCHC RDW Plt Count MPV Gran % Lymph % (Auto) [place] % (Auto) Eos % (Auto) Baso % (Auto) Gran # Lymph # (Auto) [place] # (Auto) Eos # (Auto) Baso # (Auto) PT INR APTT Sodium Potassium Chloride Carbon Dioxide Anion Gap BUN Creatinine Est GFR ( Amer) Est GFR (Non-Af Amer) Random Glucose Calcium Phosphorus Magnesium Total Bilirubin AST ALT Alkaline Phosphatase NT-Pro-B Natriuret Pep Total Protein Albumin Globulin Albumin/Globulin Ratio Urine Color Light yellow Urine Appearance Clear Urine pH 6.5 Ur Specific [place] <= 1.005 Urine Protein Negative Urine Glucose (UA) Negative Urine Ketones Negative Urine Blood Negative Urine Nitrate Negative Urine Bilirubin Negative Urine Urobilinogen 0.2 Ur Leukocyte Esterase Negative Assessment & Plan - Assessment and Plan (Free Text) Assessment: 73F patient, with PMHx of Parkinson's disease and HTN, with degenerative changes to 1st MTPJ Plan: Patient seen and evaluated with Dr. Kelly Afebrile, VSS L Foot x-ray; severe degenerative changes are seen in the 1st MTPJ L Foot MRI; severe degenerative changes of 1st MTPJ, no evidence of OM LE US; No DVT b/l Podiatry recommending no treatment at this time Patient to follow up as outpatient with Dr. Leticia TOLEDO Thank you for the consult and allowing us to partake in the care of this patient - Date & Time Date: 10/16/18 Time: 13:00
--- NOTE | 2018-10-16 16:09 | US ---
PROCEDURE: Left lower extremity venous US HISTORY: Leg pain and swelling. Evaluate for DVT. PHYSICIAN(S): Parminder Romero MD. TECHNIQUE: Duplex sonography and color-flow Doppler with graded compression were used to evaluate the deep venous system of the left lower extremity. The exam is somewhat limited by edema FINDINGS: The visualized deep venous system of the left lower extremity is sonographically normal and compressible. Normal wave forms and augmentation are seen. There is no sonographic evidence for deep venous thrombosis in the visualized segments of the left lower extremity. IMPRESSION: 1. No sonographic evidence for deep venous thrombosis in the visualized segments of the left lower extremity.
--- NOTE | 2018-10-17 00:21 | HP ---
DATE OF EXAM: 10/15/2018 HISTORY OF PRESENT ILLNESS: I saw her last night in the emergency room with her . There was a question of a left first toe osteomyelitis and they wanted to put her in last night, so we put her in last night for observation. We do an MRI today, if it is positive we will keep her to make her inpatient and if it is negative, we will discharge her because they are worried about the x-ray from last night, which is not back, but it looks like it was eroding and I thought it was worse then the last time she had an x-ray of the foot. The emergency room doctor asked me to put her in for observation and I said okay last night. She is a 73-year-old female with left foot first toe issues. PAST MEDICAL HISTORY: She has a past medical history of hypertension, Parkinson's disease, and swelling and redness of the foot who came to the emergency room with severe left great toe pain. She has hand tremors, bilateral carpal tunnel syndrome, hypertension, she wears eye glasses, thyroid nodules, she had blood transfusions in the past, she has arthritis, she has gallstones, she is incontinent, anxiety, depression, polypectomy, thyroid biopsy, laser eye surgery, hysterectomy, and she gets nauseous. FAMILY HISTORY: No known family history. SOCIAL HISTORY: Former smoker. No alcohol. No drugs. ALLERGIES: NITROFURANTOIN, HOUSE DUST AND AEROSOLS. MEDICATIONS: She takes aspirin, Sinemet, Nexium, vitamin D3, Paxil, Inderal, vitamin B6, alprazolam, simvastatin, Ursodiol, Nepro, CoQ10, Celebrex and Levaquin. REVIEW OF SYSTEMS: No fevers or weight change. No vision changes. No hearing changes. No sinus congestion. No shortness of breath or cough. No chest pain or palpitations. No abdominal pain, nausea, or vomiting. No problems urinating. Incontinent. She has arthralgias and pain in the left great toe and cellulitis of the left lower extremity and redness. No headaches or dizziness. She has a problem walking. She walks with a shuffle and walker in assistance. PHYSICAL EXAMINATION: GENERAL: She is well appearing, nontoxic, comfortable, alert and oriented x3. VITAL SIGNS: She has 98 temperature, 73 pulse, 18 respiratory rate, 194/97 blood pressure, she was very nervous last night and 98%O2 sat. HEENT: Head is atraumatic and normocephalic. Extraocular muscles are intact. Pupils are equal and reactive to light and accommodation. Throat is moist. NECK: Supple. HEART: Regular rate. Normal S1 and S2. LUNGS: Decreased breath sounds, but clear to auscultation. ABDOMEN: Soft and nontender. Positive bowel sounds. No guarding. No rebound. EXTREMITIES: Trace edema of the lower extremities. Left toe is red and inflamed. NEUROLOGIC: GCS is 15. Cranial nerves II through XII grossly intact. SKIN: Warm and dry except for the left foot. LYMPHS: No adenopathy. Thyroid midline. No palpable appreciable lymphadenopathy. LABORATORY DATA: She had tests done. She has 7.9 white count, 12.7 hemoglobin, 39 hematocrit with 269 platelets. INR is 0.97. She has 141 sodium, potassium is 4.2, BUN 28, creatinine 0.6, GFR is greater than 60, sugar is 102, calcium is 9.6, phosphors 4.5, magnesium 2, and total bili is 0.9. AST is 26, ALT is 19, and alkaline phosphatase is 86. BNP is 192. Total protein is 7.2, albumin 4.4, and globulin is 2.8. Urine was negative. ASSESSMENT AND PLAN: I am waiting for the report of the x-ray. There is also an MRI and ultrasound pending. If these tests are normal, I will discharge her today and leave her on observation. If they become positive, I will change her to an inpatient and will give the antibiotics. At this point, she is resting comfortably in bed, last night in the emergency room. Esteban Castaneda DO [facility]
== END 2018-10-16 18:50 | disposition home or self-care (01) ==
LOC: ED 16:57 → ERH 20:20 → 3RSO 21:52
PROVIDERS: ADMIT Family Medicine; ATTEND Family Medicine
DX: L03.116 Cellulitis of left lower limb (principal); M79.605 Pain in left leg; G20 Parkinson's disease; I10 Essential (primary) hypertension; Z87.891 Personal history of nicotine dependence
CPT/HCPCS: 73660; 73718; 80053; 81003; 83735; 83880; 84100; 85025; 85610; 85730; 87040; 93971; 99285; G0378